=== PATIENT | male | born 1965 | race Caucasian/White ===

== ENCOUNTER → 2020-03-09 | Outpatient (CLI) | payer BC ==
--- NOTE | 2020-03-09 19:49 | EEG ---
ELECTROENCEPHALOGRAM REPORT DATE OF SERVICE: 03/09/2020 PREAMBLE: This is a 54-year-old male who had a syncopal spell after he passed urine in the morning. He did feel slightly dizzy just prior to passing out with some tingling in the crown of the head. His heard him fall in the bathroom. This study is performed to evaluate for any epileptiform activity. EEG FINDINGS: This is a 21-channel routine EEG recording in a patient utilizing 10-20 international system with referential and bipolar montages. Background consists of well developed, well regulated, moderate voltage activity in 8-9 hertz alpha. Background is posterior- dominant and reactive to eye opening and closing. Mild drowsiness was seen with appearance of bilaterally symmetric theta frequency rhythm. Deeper stages of sleep were not seen. Photic driving response was not seen. Hyperventilation was not performed. No focal or generalized epileptiform activity was seen. EKG rhythm lead revealed no arrhythmia. IMPRESSION: This is a normal awake and drowsy EEG. No focal, lateralized or epileptiform activity was seen. MMODL / IJN: [id number] /
== END | disposition home or self-care (01) ==
LOC: NEUROMAIN 09:15
PROVIDERS: ATTEND Family Medicine
DX: R55 Syncope and collapse (principal)
CPT/HCPCS: 95816

== ENCOUNTER → 2020-04-19 | Outpatient (CLI) | payer BC ==
--- NOTE | 2020-04-19 11:26 | P.STRESS ---
- Stress Test Note Stress Test Results/Findings: Exam Performed: stress echo exercise Exam Date: 04/19/20 Reason for Exam: SYNCOPE Height: 5 ft 7 in Weight: 190 kg Protocol: JAIMIE Stage: 3 Duration of Exercise: 8 MIN Resting Heart Rate: 78 Resting Blood Pressure: 116/60 Maximum Achieved Heart Rate: 160 Maximum Achieved Blood Pressure: 189/65 85% PMHR: 141 100% PMHR: 166 METS: 9.7 Technologist Comment: Stress Test Results/Findings: This is a 54-year-old gentleman with a history of syncope and family history of ischemic heart disease being evaluated for cardiac status. Stress data: Baseline EKG showed sinus rhythm with normal AR interval, QRS duration. Blood pressure at rest is 116/60 with pulse rate of 78. Patient walked on the Jaimie protocol for 8 minutes achieving a maximal heart rate of 160 with blood pressure 189/65. EKGs taken during and after the exercise did not reveal any significant changes of ischemia. Patient did not experience any chest pain. Echo data: Baseline echo images show normal wall motion and thickening. Exercise echo images showed augmentation of wall motion and thickening in all segments. Final impression: #1. Negative stress test #2. Negative stress echo
--- NOTE | 2020-04-19 13:14 | US ---
EXAMINATION TYPE: US carotid duplex BILAT DATE OF EXAM: 04/19/2020 COMPARISON: NONE CLINICAL HISTORY: R55 Syncope. Syncope EXAM MEASUREMENTS: RIGHT: Peak Systolic Velocity (PSV) cm/sec ----- Right CCA: 105.0 ----- Right ICA: 102.0 ----- Right ECA: 101.0 ICA/CCA ratio: 1.0 RIGHT: End Diastole cm/sec ----- Right CCA: 30.5 ----- Right ICA: 102.0 ----- Right ECA: 101.0 LEFT: Peak Systolic Velocity (PSV) cm/sec ----- Left CCA: 30.5 ----- Left ICA: 27.8 ----- Left ECA: 14.1 ICA/CCA ratio: 1.2 LEFT: End Diastole cm/sec ----- Left CCA: 85.8 ----- Left ICA: 99.5 ----- Left ECA: 88.9 VERTEBRALS (direction of flow): Right Vertebral: Antegrade Left Vertebral: Antegrade Rhythm: Normal Bilateral intimal thickening, no elevated velocities, no significant stenosis. IMPRESSION: 1. Mild intimal thickening present bilaterally without significant flow-limiting stenosis. Criteria for Assigning % of Stenosis / Diameter reduction (Estimation based on the indirect measurements of the internal carotid artery velocities (ICA PSV). 1. Normal (no stenosis)=ICA PSV < 125 cm/s: ratio < 2.0: ICA EDV<40 cm/s. 2. Less than 50% stenosis=ICA PSV < 125 cm/s: ratio < 2.0: ICA EDV<40 cm/s. 3. 50 to 69% stenosis=ICA PSV of 125 to 230 cm/s: ration 2.0 ? 4.0: ICA EDV 40-100 cm/s. 4. Greater than 70% stenosis to near occlusion= ICA PSV > 230 cm/s: ratio > 4.0: ICA EDV > 100 cm/s. 5. Near occlusion= ICA PSV velocities may be low or undetectable: variable ratio and ICA EDV. 6. Total occlusion=unable to detect flow.
--- NOTE | 2020-04-19 13:17 | ECHOS ---
Stress Test Results/Findings: Exam Performed: stress echo exercise Exam Date: 04/19/20 Reason for Exam: SYNCOPE Height: 5 ft 7 in Weight: 190 kg Protocol: JAIMIE Stage: 3 Duration of Exercise: 8 MIN Resting Heart Rate: 78 Resting Blood Pressure: 116/60 Maximum Achieved Heart Rate: 160 Maximum Achieved Blood Pressure: 189/65 85% PMHR: 141 100% PMHR: 166 METS: 9.7 Technologist Comment: Stress Test Results/Findings: This is a 54-year-old gentleman with a history of syncope and family history of ischemic heart disease being evaluated for cardiac status. Stress data: Baseline EKG showed sinus rhythm with normal ID interval, QRS duration. Blood pressure at rest is 116/60 with pulse rate of 78. Patient walked on the Jaimie protocol for 8 minutes achieving a maximal heart rate of 160 with blood pressure 189/65. EKGs taken during and after the exercise did not reveal any significant changes of ischemia. Patient did not experience any chest pain. Echo data: Baseline echo images show normal wall motion and thickening. Exercise echo images showed augmentation of wall motion and thickening in all segments. Final impression: #1. Negative stress test #2. Negative stress echo MTDD
== END | disposition home or self-care (01) ==
LOC: RADUSWWP 08:47
PROVIDERS: ATTEND Family Medicine
DX: I65.29 Occlusion and stenosis of unspecified carotid artery (principal); R55 Syncope and collapse
CPT/HCPCS: 93351; 93880